=== PATIENT | male | born 1995 | race Caucasian/White ===

== ENCOUNTER → 2016-07-05 | Outpatient (CLI) | payer BC ==
[~2016-07-05] MED LIST: MAGNEVIST IV PRN
--- NOTE | 2016-07-05 13:55 | DIAGNOSTIC IMAGING REPORT ---
FLUOROSCOPIC GUIDED LEFT SHOULDER ARTHROGRAM FLUOROSCOPY TIME: 24 seconds HISTORY: Shoulder pain. LEFT SHOULDER PAIN PROCEDURE: After obtaining written informed consent, the patient was placed supine on the fluoroscopy table. A suitable site for needle insertion was marked using fluoroscopic guidance. The left shoulder was prepped and draped in the usual sterile fashion. 1% lidocaine was used for skin, subcutaneous and deep soft tissue anesthesia. Under intermittent fluoroscopic guidance, a 22 gauge 2.5 inch spinal needle was inserted into the left glenohumeral joint. A total of 14 cc of one-to-one mixture of dilute Magnevist (0.1 cc in 10 cc saline) and Optiray 300 were injected. The needle was then removed. There were no apparent complications. The patient was transported to for further imaging. IMPRESSION: Fluoroscopic-guided left shoulder arthrogram without immediate complication. Total injected volume was 14 cc. MR portion of the examination will be dictated separately. Electronically signed by: Kwaku Sams M.D. 07/05/2016 1:54 PM Dictated Date/Time: 07/05/2016 1:53 PM
--- NOTE | 2016-07-05 14:07 | DIAGNOSTIC IMAGING REPORT ---
MRI left shoulder LEFT UPPER EXTREMITY JOINT W/ CLINICAL HISTORY: LEFT SHOULDER PAIN pain. TECHNIQUE: Multiaxial MRI acquisition post contrast arthrography COMPARISON STUDY: None FINDINGS: Signal characteristics of the osseous structures are in general unremarkable. There is minimal subchondral cystic change posterolateral aspect humeral head. Articular services appear to be intact. Structures the rotator cuff are unremarkable. Biceps tendon is intact within the bicipital groove. Transaxial images suggests slight lobulation and a deterioration of the anterior inferior labral surface although this is not seen coronally. This is felt to be artifactual. There is a slight degree of a deterioration of the anterior aspect of the mid glenoid articular services best seen on coronal image 10. This may also relate to physical activity and associated stress related phenomenon. IMPRESSION:: 1. Minimal change felt to be Secondary to physical activity. 2. No significant abnormality is appreciated. 3. The rotator cuff is intact. Electronically signed by: Kwaku Sams M.D. 07/05/2016 2:06 PM Dictated Date/Time: 07/05/2016 1:55 PM
== END | disposition home or self-care (01) ==
LOC: C.MRIBC 12:45
PROVIDERS: ATTEND Orthopaedic Surgery
DX: M25.512 Pain in left shoulder (principal)